=== PATIENT | male | born 1955 | race Hispanic/Latino ===

== ENCOUNTER 2016-08-06 06:52 | Day surgery (SDC) | payer BC ==
[2016-08-06 07:21] VITALS: BMI 25.8
[2016-08-06 07:28] VITALS: O2SAT 100
[2016-08-06] MEDS ORDERED: Propofol 10 mg/ml Inj (20 ML) ONE ×2 (08:09)
[2016-08-06] MEDS ORDERED: Lactated Ringer's 500 ML IV ONE (08:10)
[2016-08-06 10:29] VITALS: RESP 12; TEMP 97
[2016-08-06 10:33] VITALS: BP 140/89; PULSE 76
== END 2016-08-06 09:40 | disposition home or self-care (01) ==
LOC: C.ENDO 06:52
PROVIDERS: ATTEND Internal Medicine Gastroenterology
DX: Z12.11 Encounter for screening for malignant neoplasm of colon (principal); K57.30 Diverticulosis of large intestine without perforation or abscess without bleeding; D12.5 Benign neoplasm of sigmoid colon; K62.1 Rectal polyp; K64.8 Other hemorrhoids
CPT/HCPCS: 45385; 88305; J2704; J7120